=== PATIENT | male | born 1950 | race Caucasian/White ===

== ENCOUNTER 2017-04-13 08:06 | Inpatient (IN) | payer MEDICARE, MEDICAID ==
[~2017-04-13] VITALS: Ht 180.3 cm; Wt 94.7 kg
[2017-04-13] VITALS (10 sets, daily range): BP systolic 125–150; BP diastolic 62–75; PULSE 59–74; TEMP 97.6–98.2
[2017-04-13] MEDS ORDERED: LIPITOR 10MG10 MG PO (08:39)
[2017-04-13] MEDS ORDERED: GLUCOPHAGE500 MG/TAB PO (08:40)
[2017-04-13] MEDS ORDERED: FOLIC ACID 40400 MCG PO (08:41)
[2017-04-13] MEDS ORDERED: NEURONTIN300 MG/CAP PO (08:41)
[2017-04-13] MEDS ORDERED: CYMBALTA 60MG60 MG PO (08:42)
[2017-04-13] MEDS ORDERED: GLUCOTROL 5M5 MG/TAB PO (08:43)
[2017-04-13] MEDS ORDERED: METHOTREXA2.5 MG/TAB PO (08:43)
[2017-04-13] MEDS ORDERED: ULTRAM 50MG TAB50 MG PO (08:44)
[2017-04-13] MEDS ORDERED: PERCOCET 325 MG1 TA2 PO (12:28)
[2017-04-13] MEDS ORDERED: MOTRIN 600600 MG/TAB PO (12:28)
[2017-04-13] MEDS ORDERED: COLACE 100100 MG/CAP PO (12:28)
[2017-04-14] VITALS (11 sets, daily range): BP systolic 124–139; BP diastolic 62–98; PULSE 49–64; TEMP 97–98.3
== END 2017-04-14 18:52 | disposition home or self-care (01) | DRG 419 ==
LOC: SDCO 08:06 → SURG 12:50
PROVIDERS: Surgery
PROC: BF101ZZ Fluoroscopy of Bile Ducts using Low Osmolar Contrast (ICD-10-PCS; 2017-04-13)
PROC: 0FT44ZZ Resection of Gallbladder, Percutaneous Endoscopic Approach (ICD-10-PCS; principal; 2017-04-13 11:00)
PROC: 0FC98ZZ Extirpation of Matter from Common Bile Duct, Via Natural or Artificial Opening Endoscopic (ICD-10-PCS; 2017-04-14)
PROC: 0F798ZZ Dilation of Common Bile Duct, Via Natural or Artificial Opening Endoscopic (ICD-10-PCS; 2017-04-14)
DX: K80.64 Calculus of gallbladder and bile duct with chronic cholecystitis without obstruction (principal); E11.42 Type 2 diabetes mellitus with diabetic polyneuropathy
CPT/HCPCS: C1769; J0690; J0694; J0744; J1100; J1170; J1610; J2270; J2405; J2704; J2765; J3010; J7030; J7120; Q9967